=== PATIENT | male | born 1985 | race Caucasian/White ===

== ENCOUNTER 2018-09-01 16:32 | Emergency (ER) | payer SELFPAY ==
[~2018-09-01] VITALS: Ht 185.4 cm; Wt 106.4 kg
[2018-09-01 16:37] VITALS: BP_SYST 131; BP_SYST 148; BP_DIAS 103; BP_DIAS 83
--- NOTE | 2018-09-01 16:45 | NUR ---
EKG TAKEN GIVEN TO DR GONZALEZ. PER PT CAN WAIT AT THE LOBBY. PT AMBULATES TO THE LOBBY WITHOUT DIFFICULTY.
== END 2018-09-01 18:07 | disposition left against medical advice (07) ==
LOC: MED 16:32
DX: R07.9 Chest pain, unspecified (principal); R42 Dizziness and giddiness; R06.02 Shortness of breath; Z53.21 Procedure and treatment not carried out due to patient leaving prior to being seen by health care provider
CPT/HCPCS: 93005

== ENCOUNTER 2018-09-10 16:54 | Emergency (ER) | payer SELFPAY ==
[~2018-09-10] VITALS: Ht 185.4 cm; Wt 107.0 kg
[2018-09-10 17:02] VITALS: BP 120/73
--- NOTE | 2018-09-10 17:06 | NUR ---
EKG DONE IN TRIAGE
--- NOTE | 2018-09-10 17:09 | NUR ---
EKG REVIEWED BY DR. VILLEGAS. OK PATIENT TO WAIT IN THE LOBBY FOR NEXT AVAIL. BED. PATIENT IN NO DISTRESS
[2018-09-10] MEDS ORDERED: ATEN25TA7 PO (17:13)
--- NOTE | 2018-09-10 19:22 | NUR ---
PT LWBS AT 1840 FIRST CALL- 1840 SECOND CALL- 1900 THIRD CALL- 191
== END 2018-09-10 18:40 | disposition left against medical advice (07) ==
LOC: MED 16:54
DX: R06.02 Shortness of breath (principal); R11.0 Nausea; R10.9 Unspecified abdominal pain; R07.9 Chest pain, unspecified; F41.9 Anxiety disorder, unspecified; Z53.21 Procedure and treatment not carried out due to patient leaving prior to being seen by health care provider